=== PATIENT | female | born 1970 | race Caucasian/White ===

== ENCOUNTER → 2021-01-04 | Outpatient (CLI) | payer MEDICAID ==
[~2021-01-04] MED LIST: CEFAZOLIN 1,000 MG ONE; DEXAMETHASONE 4 MG/ML, 1ML ONE; EPINEPHRINE 1 MG/ML, 1ML ONE; FENTANYL PF 250 MCG/5ML ONE; HYDR-2214 PO; HYDR50TA99 PO; KETOROLAC 30 MG/1 ML ONE; MIDAZOLAM 1 MG/ML, 2ML ONE; ONDANSETRON 2MG/ML, 2ML ONE; PROP10TA16 PO; PROPOFOL 10 MG/ML, 20ML ONE; QUET100T PO; ROCURONIUM 10MG/ML,5ML ONE; ROPIvacaine/PF 0.5%, 30 ML ONE; TRANEXAMIC ACID 100 MG/ML, 10ML ONE; VANCOMYCIN 1,000 MG ONE
[2021-01-04 11:19] LABS: BASOPHILS % (AUTO) 1 % (0-1); EOSINOPHILS % (AUTO) 1 % (1-7); LYMPHOCYTES % (AUTO) 22 % (22-44); MEAN CORPUSCULAR HEMOGLOBIN 33.4 pg (27.0-34.8); MEAN CORPUSCULAR HGB CONC 33.9 g/dL (32.4-35.8); MEAN PLATELET VOLUME 7.3 fL (7.4-10.4); MONOCYTES % (AUTO) 12 % (2-9); NEUTROPHILS % (AUTO) 65 % (42-75); PLATELET COUNT 216 x10^3/uL (130-400); RED BLOOD COUNT 4.51 x10^6/uL (3.82-5.3); RED CELL DISTRIBUTION WIDTH 17.2 % (9.6-15.2)
[2021-01-04 11:27] LABS: ALANINE AMINOTRANSFERASE 50 U/L (12-78); ALBUMIN 3.4 g/dL (3.4-5.0); CALCIUM 9.3 mg/dL (8.5-10.1); CHLORIDE 108 mmol/L (98-107); CREATININE 0.89 mg/dL (0.55-1.02)
[2021-01-04 11:29] LABS: ALKALINE PHOSPHATASE 70 U/L (45-117); BILIRUBIN,TOTAL 1.1 mg/dL (0.2-1.0); INTERNATIONAL NORMALIZED RATIO 0.96 (0.93-1.1); PROTHROMBIN TIME 10.3 Seconds (9.6-11.5); TOTAL PROTEIN 7.2 g/dL (6.4-8.2)
[2021-01-04 11:36] LABS: ANION GAP 4 mmol/L (5-15)
== END | disposition home or self-care (01) ==
LOC: STAR 10:15
PROVIDERS: ATTEND Orthopaedic Surgery
DX: Z01.812 Encounter for preprocedural laboratory examination (principal); Z20.822 Contact with and (suspected) exposure to COVID-19; M16.11 Unilateral primary osteoarthritis, right hip
CPT/HCPCS: 36415; 80053; 83036; 85025; 85610; 85730; 87081; 93005; U0003; U0005

== ENCOUNTER 2021-01-08 07:34 | Day surgery (SDC) | payer MEDICAID ==
[~2021-01-08] VITALS: Ht 190.5 cm; Wt 80.4 kg
[~2021-01-08 07:34] MED LIST changes: +ACETAMINOPHEN 650 MG/20.3 ML UDC PO PRN; +BISACODYL 10 MG SUPP PR PRN; -CEFAZOLIN 1,000 MG ONE; +CEFAZOLIN PMX 2GM/50ML 50 ML IVPB SCH; -DEXAMETHASONE 4 MG/ML, 1ML ONE; +DIPHENHYDRAMINE 25 MG CAPSULE PO PRN; -EPINEPHRINE 1 MG/ML, 1ML ONE; -FENTANYL PF 250 MCG/5ML ONE; +HYDROcodone/APAP 5/325 TABLET PO PRN; -KETOROLAC 30 MG/1 ML ONE; +MAGNESIUM HYDROXIDE 8%, 30ML UDC PO PRN; -MIDAZOLAM 1 MG/ML, 2ML ONE; +NS + 20MEQ KCL 1,000 ML IV SCH; +ONDANSETRON 2MG/ML, 2ML IV PRN; -ONDANSETRON 2MG/ML, 2ML ONE; +ONDANSETRON 4 MG TABLET PO PRN; +OXYcodone IR 5MG TABLET PO PRN; -PROPOFOL 10 MG/ML, 20ML ONE; -ROCURONIUM 10MG/ML,5ML ONE; -ROPIvacaine/PF 0.5%, 30 ML ONE; +SENNA/DOCUSATE TABLET PO PRN; -TRANEXAMIC ACID 100 MG/ML, 10ML ONE; -VANCOMYCIN 1,000 MG ONE; +ZOLPIDEM 5MG TABLET PO PRN
[2021-01-08 07:55] VITALS: BP 135/94
[2021-01-08] MEDS ORDERED: CHLORHEXIDINE 15 ML UDC PO ONE (08:00)
[2021-01-08] MEDS ORDERED: GABAPENTIN 300 MG CAPSULE PO ONE (08:00)
[2021-01-08] MEDS ORDERED: VANCOMYCIN PER PHARMACY MC PRN (08:00)
[2021-01-08] MEDS ORDERED: ACETAMINOPHEN 500 MG TABLET PO ONE (08:00)
[2021-01-08] MEDS: LACTATED RINGERS 1,000 ML IV SCH ×2 (08:09→08:15)
[2021-01-08] MEDS ORDERED: CHLORHEXIDINE 15 ML UDC ONE (08:10)
[2021-01-08] MEDS ORDERED: MEPERIDINE/PF 25MG/0.5ML IVPush PRN (08:30)
[2021-01-08] MEDS ORDERED: hydrALAzine 20 MG/ML, 1ML IV PRN (08:30)
[2021-01-08] MEDS ORDERED: ONDANSETRON 2MG/ML, 2ML IVPush PRN (08:30)
[2021-01-08] MEDS ORDERED: PROMETHAZINE 25 MG/ML, 1ML IVPush PRN (08:30)
[2021-01-08] MEDS ORDERED: VANCOMYCIN 2,000 MG in SODIUM CHLORIDE 0.9% 500 ML IV ONE (08:30)
[2021-01-08] MEDS ORDERED: LABETALOL 5MG/ML, 20ML IV PRN (08:30)
[2021-01-08] MEDS ORDERED: ACETAMINOPHEN 325 MG TABLET PO PRN (08:30)
[2021-01-08] MEDS ORDERED: OXYcodone 5 MG/5 ML ORAL.SOL UDC PO PRN (08:30)
[2021-01-08] MEDS ORDERED: METHOCARBAMOL 1,000 MG in DEXTROSE 5% 100 ML IV PRN (08:30)
[2021-01-08] MEDS ORDERED: FENTANYL PF 250 MCG/5ML ONE (08:43)
[2021-01-08] MEDS ORDERED: DEXAMETHASONE 4 MG/ML, 1ML ONE (08:43)
[2021-01-08] MEDS ORDERED: TRANEXAMIC ACID 100 MG/ML, 10ML ONE (08:43)
[2021-01-08] MEDS ORDERED: PROPOFOL 10 MG/ML, 20ML ONE (08:43)
[2021-01-08] MEDS ORDERED: EPINEPHRINE 1 MG/ML, 1ML ONE (08:43)
[2021-01-08] MEDS ORDERED: ROPIvacaine/PF 0.5%, 30 ML ONE (08:43)
[2021-01-08] MEDS ORDERED: MIDAZOLAM 1 MG/ML, 2ML ONE (08:43)
[2021-01-08] MEDS ORDERED: VANCOMYCIN 1,000 MG ONE (08:43)
[2021-01-08] MEDS ORDERED: ROCURONIUM 10 MG/ML,10ML ONE (08:43)
[2021-01-08] MEDS ORDERED: KETOROLAC 30 MG/1 ML ONE (08:43)
[2021-01-08] MEDS ORDERED: CEFAZOLIN 1,000 MG ONE (08:43)
[2021-01-08] MEDS ORDERED: ONDANSETRON 2MG/ML, 2ML ONE (08:43)
[2021-01-08] MEDS ORDERED: DOCUSATE 100 MG CAPSULE PO SCH (09:00)
[2021-01-08] MEDS ORDERED: QUETIAPINE 100MG TABLET PO SCH (09:00)
[2021-01-08] MEDS ORDERED: PROPRANOLOL 10 MG TABLET PO SCH (09:00)
[2021-01-08] MEDS ORDERED: ROPIvacaine/PF 0.5%, 30 ML INFIL ONE (09:14)
[2021-01-08] MEDS ORDERED: KETOROLAC 30 MG/1 ML IM ONE (09:15)
[2021-01-08] MEDS ORDERED: VANCOMYCIN 1,000 MG IVPB ONE (09:16)
[2021-01-08] MEDS ORDERED: EPINEPHRINE 1 MG/ML, 1ML INFIL ONE (09:16)
[2021-01-08] MEDS ORDERED: MEPERIDINE/PF 25MG/ML,1ML ONE (10:12)
[2021-01-08] MEDS ORDERED: OXYcodone 5 MG/5 ML ORAL.SOL UDC ONE (10:13)
[2021-01-08] MEDS ORDERED: FENTANYL PF 100 MCG/2ML ONE ×2 (10:13→10:59)
[2021-01-08] MEDS ORDERED: ACETAMINOPHEN 650 MG/20.3 ML UDC ONE (10:13)
[2021-01-08] MEDS: FENTANYL PF 100 MCG/2ML IV PRN ×2 (10:33→10:46)
[2021-01-08] MEDS ORDERED: HYDROmorphone 1 MG/ML, 1ML INJ ONE (11:01)
[2021-01-08] MEDS: HYDROmorphone 1 MG/ML, 1ML INJ IVPush PRN ×2 (11:02→11:14)
[2021-01-08] MEDS ORDERED: ASPIRIN 81 MG TABLET EC PO SCH (18:00)
[2021-01-09] MEDS ORDERED: DEXAMETHASONE 4 MG/ML, 1ML IVPush SCH (06:00)
== END 2021-01-08 13:55 | disposition home or self-care (01) ==
LOC: OUT 07:34
PROVIDERS: ATTEND Orthopaedic Surgery
DX: M16.11 Unilateral primary osteoarthritis, right hip (principal); M87.051 Idiopathic aseptic necrosis of right femur; M25.751 Osteophyte, right hip; I10 Essential (primary) hypertension; Z79.891 Long term (current) use of opiate analgesic; Z79.899 Other long term (current) drug therapy
CPT/HCPCS: 27130; 72170; 73501; 97162; 97166; C1713; C1776; J0171; J0690; J1100; J1170; J1885; J2175; J2250; J2405; J2704; J2795; J2800; J3010; J3370; J7040; J7120; 76000